=== PATIENT | female | born 1990 | race Two or more races ===

== ENCOUNTER 2024-11-13 18:06 | Emergency (ER) | payer OTHER ==
[~2024-11-13] VITALS: Ht 154.9 cm; Wt 72.6 kg
[2024-11-13 18:08] VITALS: TEMP 98.4
[2024-11-13 18:53] LABS: BASOPHILS % (AUTO) 0.4 % (0.0-2.0); EOSINOPHILS # (AUTO) 1.1 K/uL (0.0-0.7); EOSINOPHILS % (AUTO) 9.8 % (0.0-6.0); HEMATOCRIT 42 % (33-45); HEMOGLOBIN 13.4 g/dL (11.5-14.8); LYMPHOCYTES # (AUTO) 2.9 K/uL (0.8-4.8); LYMPHOCYTES % (AUTO) 26.7 % (20.0-44.0); MEAN CORPUSCULAR HEMOGLOBIN 26 PG (26.0-33.0); MEAN CORPUSCULAR HGB CONC 32 g/dl (31.0-36.0); MEAN CORPUSCULAR VOLUME 81 fL (82-100); MONOCYTES # (AUTO) 0.6 K/uL (0.1-1.30); MONOCYTES % (AUTO) 5.1 % (2.0-12.0); NEUTROPHILS # (AUTO) 6.4 K/uL (1.8-8.9); PLATELET COUNT (AUTO) 315 K/uL (150-450); RED CELL DISTRIBUTION WIDTH 14.7 % (11.5-15.0)
[2024-11-13 18:59] LABS: CALCIUM, SERUM 8.7 mg/dL (8.5-10.1); CREATININE 0.9 mg/dL (0.6-1.3); POTASSIUM 4.1 mmol/L (3.5-5.1)
[2024-11-13 19:17] LABS: APPEARANCE,URINE CLEAR (CLEAR); BILIRUBIN,URINE Negative (NEGATIVE); BLOOD, URINE Trace-intact Ery/uL (NEGATIVE); COLOR,URINE YELLOW (YELLOW); KETONES,URINE Negative (NEGATIVE); LEUKOCYTE ESTERASE ,URINE Negative (NEGATIVE); PH,URINE 5.5 (5.0-8.0); PROTEIN,URINE Negative (NEGATIVE); UGLUCOSE Negative (NEGATIVE); UROBILINOGEN,URINE 0.2 EU/dL (0.2)
[2024-11-13 19:18] LABS: NITRITE, URINE NEGATIVE (NEGATIVE)
[2024-11-13 19:21] LABS: ADD URINE CULTURE NO; BACTERIA,URINE Few /HPF (None Seen); SQUAMOUS EPITHELIAL CELL,UR Few /HPF (None Seen)
[2024-11-13 19:22] LABS: PREGNANCY TEST URINE QUAL NEGATIVE (NEGATIVE)
[2024-11-13] MEDS: ALBUTEROL FS 2.5 MG/3 ML VIAL.NEB NEB ONE (19:35)
[2024-11-13 19:40] VITALS: O2SAT 100
[2024-11-13] MEDS ORDERED: ALBUTEROL FS 2.5 MG/3 ML VIAL.NEB ONE (19:48)
[2024-11-13 19:50] VITALS: O2SAT 100
[2024-11-13] MEDS ORDERED: predniSONE 20 MG TABLET ONE (20:48)
[2024-11-13] MEDS ORDERED: PRED20TA PO (20:50)
[2024-11-13] MEDS ORDERED: ALBU18HF2 INH (20:50)
[2024-11-13] MEDS ORDERED: FLUT9.9S NS (20:50)
[2024-11-13] MEDS: predniSONE 20 MG TABLET PO ONE (20:50)
[2024-11-13 21:01] VITALS: BP 110/70; O2SAT 97
== END 2024-11-13 21:00 | disposition home or self-care (01) ==
LOC: ER 18:13
DX: R09.81 Nasal congestion (principal); J45.901 Unspecified asthma with (acute) exacerbation; E03.9 Hypothyroidism, unspecified
CPT/HCPCS: 99285; 71045; 93005; 85025; 80048; 84703; 81001; 36415; 94799; 94640; J7512